=== PATIENT | male | born 1955 | race Caucasian/White ===

== ENCOUNTER → 2023-08-07 06:37 | Day surgery (SDC) | payer MEDICARE, OTHER, SELFPAY | LOC: GI 06:37 | PROVIDERS: ATTENDING PHYSICIAN Specialist; FAMILY PHYSICIAN Internal Medicine | DX: Z12.11 Encounter for screening for malignant neoplasm of colon (principal); R19.4 Change in bowel habit; D12.5 Benign neoplasm of sigmoid colon | CPT/HCPCS: 45385; 45380; 88305 ==